=== PATIENT | female | born 1975 | race Caucasian/White ===

== ENCOUNTER 2022-10-01 21:59 | Emergency (ER) | payer MEDICAID, SELFPAY ==
[2022-10-01 22:30] VITALS: BP 133/79; PULSE 83; RESP 16; TEMP 36.4; O2SAT 97; BMI 35.2
--- NOTE | 2022-10-01 23:31 | ED.FEMALEGU ---
HPI - Female Genitourinary General Chief complaint: Urogenital Problems, Female Stated complaint: problem with catheter Time Seen by Provider: 10/01/22 23:31 History of Present Illness HPI Narrative: This 47-year-old female has a urinary catheter in place status post hysterectomy surgery that occurred 3 days ago. She is due to have the catheter out in the next 3 days but comes in today wondering if he can be taken out because she has some bladder spasms and states that there is urine leaking out around the tube. Related Data Home Medications Medication Instructions Recorded Confirmed No Known Home Medications 10/01/22 10/01/22 Allergies Allergy/AdvReac Type Severity Reaction Status Date / Time No Known Drug Allergies Allergy Verified 10/01/22 22:35 Review of Systems Status of ROS: Reports: 10 or more systems reviewed and unremarkable except as noted in History and below Narrative: Constitutional: No fevers, no weight gain or loss. Eyes: No discharge. No vision changes. HENT: No congestion, no sore throat, no ear pain. Cardiovascular: No chest pain, no palpitations. Respiratory: No shortness of breath, no wheezes, no cough. Gastrointestinal: No abdominal pain, no vomiting, no diarrhea. Genitourinary: Ulloa catheter in place. Musculoskeletal: Normal range of motion. Skin: No rashes, no pruritis. Neurological: No dizziness, weakness, sensory change, speech change. Endo/Heme/Allergies: No bruising or bleeding. No polydipsia. Pysch: no suicidality, no anxiety, no insomnia. All other systems reviewed and are negative. Exam Narrative: Exam Narrative: Constitutional: Well-developed, well-nourished, no acute distress. HEENT: Normocephalic, atraumatic. Neck: Normal range of motion. Nontender. Supple. Heart: Intact distal pulses. Lungs: No chest discomfort. No wheezes, rhonchi, or rales. Abdomen: Lower abdomen tenderness secondary to recent hysterectomy. Back: Normal range of motion. Extremities: Normal range of motion. No injury. Skin: Intact. No rash. Warm. No erythema or pallor. Neurologic: No altered sensation. No weakness. Alert and oriented. Psychiatric: No suicidality. No anxiety or depression. No insomnia. Nursing notes and vitals signs are reviewed. Const: Vital Signs, click to edit/add: Vital Signs - 24 hr 10/01/22 22:30 Temperature 97.6 F Pulse Rate [Left P ulse Oximeter] 83 Respiratory Rate 16 Blood Pressure [Ri ght Upper Arm] 133/79 Pulse Oximetry 97 Oxygen Delivery Me thod Room Air Course Vital Signs Vital signs: Initial Vital Signs Temperature 97.6 F 10/01/22 22:30 Temperature Source Temporal Artery Scan 10/01/22 22:30 Pulse Rate 83 10/01/22 22:30 Respiratory Rate 16 10/01/22 22:30 Blood Pressure 133/79 10/01/22 22:30 Blood Pressure Mean 97 10/01/22 22:30 Blood Pressure Position Sitting 10/01/22 22:30 Pulse Oximetry 97 10/01/22 22:30 Oxygen Delivery Method Room Air 10/01/22 22:30 Vital Signs Temperature 97.6 F 10/01/22 22:30 Pulse Rate 83 10/01/22 22:30 Respiratory Rate 16 10/01/22 22:30 Blood Pressure 133/79 10/01/22 22:30 Pulse Oximetry 97 10/01/22 22:30 Oxygen Delivery Method Room Air 10/01/22 22:30 Temperature 97.6 F 10/01/22 22:30 Pulse Rate 83 10/01/22 22:30 Respiratory Rate 16 10/01/22 22:30 Blood Pressure 133/79 10/01/22 22:30 Pulse Oximetry 97 10/01/22 22:30 Oxygen Delivery Method Room Air 10/01/22 22:30 MDM - Female Genitourinary MDM Narrative Medical decision making narrative: This patient is requesting removal of her urinary catheter because of uncomfortable symptoms related to it. I stated that we can remove the catheter but the reason a displaced is to manage the likelihood of urinary tension which is much more likely to occur in the 1st days after such a surgery. I stated that the catheter can be removed but she may have difficulty passing urine. Patient still wishes to have it removed. She understands that she can return if unable to void urine. Discharge Plan Discharge Clinical Impression: Ulloa catheter problem Patient Disposition: Home, Self-Care Condition: Stable Additional Instructions: Activity as tolerated. Continue current medications as prescribed. Follow up with MD or return if unable to void urine. Prescriptions: No Action No Known Home Medications Stand Alone Forms: [employer] Info Instructions
== END 2022-10-01 23:46 | disposition home or self-care (01) ==
LOC: ED 23:39
PROVIDERS: Emergency Provider Emergency Medicine Emergency Medical Services
DX: T83.098A Other mechanical complication of other urinary catheter, initial encounter (principal)
CPT/HCPCS: 99282; 99283; 99284